=== PATIENT | male | born 1945 | race Caucasian/White ===

== ENCOUNTER → 2024-08-14 | Outpatient (CLI) | payer MEDICARE, BC, SELFPAY ==
[2024-08-14 10:05] LABS: Glucose Estimated Average 103 mg/dL (80-131); Hemoglobin A1C 5.2 % Hgb (4.8-6.0)
[2024-08-14 10:07] LABS: Ferritin 61 ng/mL (10.5-307.3); Iron 99 mcg/dL (65-175); Total Iron Binding Capacity 342 mcg/dL (250-425)
[2024-08-14 10:08] LABS: Basophils % (Auto) 1 % (0-2.5); Eosinophils # (Auto) 0.1 Thou/mm3 (0.0-0.5); Eosinophils % (Auto) 2 % (0-10); Folate 6.01 ng/mL (>5.38); Hematocrit 43.5 % (41.0-53.0); Hemoglobin 14.7 g/dL (13.5-16.0); Immature Granulocytes % (Auto) 0 % (0-0); Immature Granulocytes Auto 0.02 Thou/mm3 (0.00-0.00); Lymphocytes # (Auto) 1.6 Thou/mm3 (1.0-4.8); Lymphocytes % (Auto) 24 % (10-50); Mean Corpuscular HGB Conc 33.8 g/dl (31.0-37.0); Mean Corpuscular Hemoglobin 30.1 pg (25.0-35.0); Mean Corpuscular Volume 89 fL (80-100); Monocytes # (Auto) 0.4 Thou/mm3 (0.0-0.8); Monocytes % (Auto) 6 % (0-12); Neutrophils # (Auto) 4.4 Thou/mm3 (1.8-7.7); Neutrophils % (Auto) 68 % (37-80); Nucleated Red Blood Cell % 0 /100 WBC (0); Platelet Count 189 Thou/mm3 (140-440); RDW Standard Deviation 43.9 fL (35.1-43.9); Red Blood Count 4.89 Miln/mm3 (4.50-5.90); Vitamin B12 305 pg/mL (211-911); Vitamin D 25 Hydroxy Total 17.5 ng/mL (7.3-40.2); White Blood Count 6.4 Thou/mm3 (3.8-10.6)
[2024-08-14 10:13] LABS: Alanine Aminotransferase 22 U/L (10-49); Albumin, Serum 4.3 gm/dL (3.4-4.8); Albumin/Globulin Ratio 2.4 (1.2-2.2); Alkaline Phosphatase 88 U/L (46-116); Anion Gap 6 (7-16); Aspartate Amino Transferase 17 U/L (0-34); BUN/Creatinine Ratio 16 Ratio (12-20); Bilirubin,Total 0.7 mg/dL (0.3-1.2); Blood Urea Nitrogen 18 mg/dL (9-23); Carbon Dioxide 31.1 mMol/L (20.0-31.0); Chloride 104 mMol/L (98-107); Cholesterol 183 mg/dL (132-200); Creatinine (Component) 1.1 mg/dL (0.6-1.3); Free T4 (Free Thyroxine) 1.13 ng/dL (0.89-1.76); Globulin 1.8 gm/dL (2.3-3.5); Glucose 87 mg/dL (74-106); HDL Cholesterol 46 mg/dL (40-60); LDL Cholesterol,Calculated 117 mg/dL (0-130); Osmolality,Calculated 282 (275-295); Phosphorous 2.9 mg/dL (2.4-5.1); Potassium 3.8 mMol/L (3.4-5.1); Sodium 141 mMol/L (136-145); Thyroid Stimulating Hormone 1.98 uIU/mL (0.55-4.78); Total Protein 6.1 gm/dL (5.7-8.2); Triglycerides 99 mg/dL (30-150); eGFR > 60 See Note
[2024-08-16 22:07] LABS: PSA, Free 0.89 ng/mL; PSA, Total 3.4 ng/mL (< OR = 4.0)
[2024-08-17 06:56] LABS: PSA, % Free 26 % (calc) (>25)
== END | disposition home or self-care (01) ==
LOC: COPL 07:58
PROVIDERS: PCP Nurse Practitioner Family; Referring Provider Nurse Practitioner Family; Visit Provider Nurse Practitioner Family
DX: I10 Essential (primary) hypertension (principal)
CPT/HCPCS: 36415; 80053; 80061; 82306; 82607; 82728; 82746; 83036; 83540; 83550; 84100; 84153; 84154; 84439; 84443; 85025

== ENCOUNTER → 2024-12-18 | Outpatient (CLI) | payer MEDICARE, BC, SELFPAY ==
--- NOTE | 2024-12-18 13:06 | XR_ITS ---
Examination: Thoracic spine 3 views Technique one AP lateral coned lateral upper dorsal spine 3 views Date and time: December 18, 2024, 1401 hours INDICATIONS: Patient fell today with injury to the back, mid back pain. FINDINGS: Prominent osteopenia Mild kyphosis dorsal spine. No acute thoracic fracture. Mild to moderate diffuse thoracic degenerative disc disease IMPRESSION: No acute thoracic fracture
--- NOTE | 2024-12-18 13:06 | XR_ITS ---
Examination: Lumbar spine, 5 views Technique: Lumbar spine AP, lateral, coned lateral lower lumbar spine, bilateral obliques 5 views Exam date and time: December 18, 2024 1357 hours INDICATIONS: Patient fell today with injury to lower back, lower back pain. FINDINGS: Severe osteopenia Lumbar dextroscoliosis 10 degrees Diffuse advanced facet arthropathy. No acute lumbar fracture Advanced degenerative disc disease L1-L2, L3-L4, L4-L5 No spondylolisthesis IMPRESSION: No acute lumbar fracture
== END | disposition home or self-care (01) ==
LOC: CDIM 13:03
PROVIDERS: PCP Nurse Practitioner Family; Referring Provider Nurse Practitioner Family; Visit Provider Nurse Practitioner Family
DX: S39.92XA Unspecified injury of lower back, initial encounter (principal); S29.9XXA Unspecified injury of thorax, initial encounter; W19.XXXA Unspecified fall, initial encounter
CPT/HCPCS: 72072; 72110

== ENCOUNTER 2025-04-05 08:54 | Emergency (ER) | payer MEDICARE, BC, SELFPAY ==
[2025-04-05 09:21] VITALS: BP 170/89; PULSE 87; RESP 18; TEMP 36.9; O2SAT 99; BMI 28.8
--- NOTE | 2025-04-05 09:25 | XR_ITS ---
Examination: CT cervical spine without contrast 2-D sagittal reconstructions 2-D coronal reconstructions 3-D reconstructions. Exam date and time: April 05, 2025, 0945 hours INDICATIONS: Patient fell today with injury to the neck, neck pain CTDI:vol (mGy) 14.7 DLP: (mGycm) 335 Technique: Multiple 2 mm axial sections of the cervical spine have been obtained. The coronal and sagittal reconstructions have been obtained. 3-D reconstructions have been obtained. Low dose protocols were performed. One or more of the following dose reduction techniques were used; automated exposure control, adjustment of the mA and/or KV according to patient size, use of iterative reconstruction technique. Findings: Axial sections demonstrate intact base of the skull. C1 exhibit satisfactory relationship to the odontoid. No acute cervical vertebral body fracture seen. Alignment posterior spinous processes satisfactory. Impression: No acute cervical fracture. 7 mm nodule at the right apex image 116, recommend AP, AP lordotic chest views follow-up
--- NOTE | 2025-04-05 09:25 | XR_ITS ---
Examination: CT brain head without contrast. 2-D sagittal coronal reconstructions Date and time of exam: April 05, 2025, 0945 hours INDICATIONS: Patient fell today with injury to the head, head pain CTDI: vol (mGy): 49.7 DLP: (mGycm): 954 Technique: Multiple CT axial sections of the brain have been obtained, 5 mm slice thickness. Contrast has not been administered. 2-D sagittal, coronal reconstructions have been obtained Low dose protocols were performed. One or more of the following dose reduction techniques were used; automated exposure control, adjustment of the mA and/or KV according to patient size, use of iterative reconstruction technique. Findings: Right frontal hemorrhagic contusion, axial image 20 with adjacent subarachnoid hemorrhage over the right frontal convexity sulci Minute subarachnoid hemorrhage at the temporal lobe tip on the right axial image 26 No significant mass effect. Ventricles are not enlarged. No intraventricular hemorrhage Fourth ventricle midline Cranial vault appears intact IMPRESSION: Right frontal hemorrhagic contusion Subarachnoid hemorrhage over right frontal convexity sulci No significant mass effect upon the ventricular system Recommend close clinical observation and repeat CT brain scans as clinically warranted
--- NOTE | 2025-04-05 09:32 | PD.EDHA ---
ED Headache RME/HPI General Chief Complaint: Headache Stated Complaint: HEADACHE/HEAD INJURY Time Seen by Provider: 04/05/25 09:02 Source: patient Arrival date/time: 04/05/25 08:54 80-year-old male with a history of hypertension, presents to the emergency room with a chief complaint of a headache after a ground-level fall that occurred yesterday afternoon Mode of arrival: ambulatory Limitations: no limitations Related Data Home Medications ?Medication ?Instructions ?Recorded ?Confirmed hydrochlorothiazide 25 mg tablet 25 mg PO QDAY 04/10/19 04/10/19 lisinopril 20 mg tablet 20 mg PO QDAY 04/10/19 04/10/19 ranitidine HCl 150 mg tablet 150 mg PO BID 04/10/19 04/10/19 verapamil 240 mg tablet,extended 240 mg PO QAM 04/10/19 04/10/19 release Allergies Allergy/AdvReac Type Severity Reaction Status Date / Time naproxen Allergy Intermediate Numbness Verified 04/05/25 08:57 Review of Systems Review of Systems Systems Reviewed: All systems reviewed, normal except as documented Constitutional Constitutional: Reports system reviewed and no additional complaints, except as documented, Denies fatigue, Denies fever(s), Reports headache(s) and Denies weakness Eyes Eyes: Reports system reviewed and no additional complaints, except as documented, Denies blurry vision and Denies change in vision ENT Ears, Nose, Mouth, and Throat: Reports system reviewed and no additional complaints, except as documented, Denies otalgia, Reports headache(s), Denies nasal congestion, Denies throat swelling and Denies vertigo Cardiovascular Cardiovascular: Reports system reviewed and no additional complaints, except as documented, Denies chest pain, Denies dyspnea and Denies dyspnea on exertion Respiratory Respiratory: Reports system reviewed and no additional complaints, except as documented, Denies chest congestion, Denies cough, Denies dyspnea, Denies dyspnea on exertion and Denies wheezing Gastrointestinal Gastrointestinal: Reports system reviewed and no additional complaints, except as documented, Denies abdominal pain, Denies cramping, Denies nausea and Denies vomiting Genitourinary Genitourinary: Reports system reviewed and no additional complaints, except as documented, Denies dysuria and Denies hematuria Musculoskeletal Musculoskeletal: Reports system reviewed and no additional complaints, except as documented and Denies back pain Integumentary/Breasts Skin/Breast: Reports system reviewed and no additional complaints, except as documented and Denies wounds Neurologic Neurologic: Reports system reviewed and no additional complaints, except as documented, Denies confusion, Reports headache(s), Denies lack of coordination, Denies vertigo and Denies weakness Psychiatric Psychiatric: Reports system reviewed and no additional complaints, except as documented, Denies anxiety, Denies confusion, Denies depression, Denies paranoia, Denies suicidal ideation and Denies tactile hallucinations Endocrine Endocrine: Reports system reviewed and no additional complaints, except as documented and Denies fatigue Hematologic/Lymphatic Hematologic/Lymphatic: Reports system reviewed and no additional complaints, except as documented and Denies lymphadenopathy Allergic/Immunologic Allergic/Immunologic: Reports system reviewed and no additional complaints, except as documented, Denies throat swelling, Denies urticaria and Denies wheezing Past Medical History Past Medical History NEUROLOGIC: Negative Seizures CARDIAC: Positive Hypercholesterolemia and Hypertension; Negative Congestive Heart Failure RESPIRATORY: Negative Chronic Obstructive Pulmonary Disease (COPD) GASTROINTESTINAL: Positive Hiatal Hernia GENITOURINARY: Negative Renal Disease ENDOCRINE: Negative Diabetes Mellitus Type 1 or Diabetes Mellitus Type 2 OTHER HISTORY: Positive Blood Transfusions; Negative Blood Transfusion Reaction or Anesthesia Reactions Social History SMOKING STATUS: Never smoker ED Exam General Limitations: Present no limitations General appearance: Present alert and in no apparent distress Head Head exam: Present atraumatic, normocephalic and normal inspection Expanded Head Exam Head exam physical: Present contusion; Absent laceration, abrasion, hematoma, raccoon eyes, Pereira's sign, tenderness of temporal artery, CSF rhinorrhea or CSF otorrhea Head image:  1. Contusion to the posterior head Eye Eye exam: Present normal appearance, PERRL and EOMI ENT ENT exam: Present normal exam, normal oropharynx and mucous membranes moist Neck Neck exam: Present normal inspection, full ROM and trachea midline Chest Chest inspection: Present normal inspection and symmetric chest wall rise Respiratory Respiratory exam: Present normal lung sounds bilaterally Cardiovascular Cardiovascular exam: Present regular rate, normal rhythm and normal heart sounds Abdominal Exam Abdominal exam: Present soft and normal bowel sounds Extremities Exam Extremities exam: Present normal inspection and full ROM Back Exam Back exam: Present normal inspection and full ROM Neurological Exam Neurological exam: Present alert, oriented X3, CN II-XII intact, normal gait and reflexes normal; Absent motor sensory deficit Expanded Neurological Exam Patient oriented to: Present person, place and time Speech: Present fluid speech Cranial nerves: Normal: EOM function (II, III, IV, ) and facial sensation (V) Cerebellar function: Present normal gait Motor strength - LUE: 5/5 Motor strength - RUE: 5/5 Motor strength - LLE: 5/5 Motor strength - RLE: 5/5 Coma scale eye opening: spontaneous Coma scale motor response: obeys commands Coma scale verbal response: oriented Coma scale total: 15 Psychiatric Psychiatric exam: Present normal affect and normal mood Skin Skin exam: Present warm, dry, intact and normal color Course Quality Measures none Orders Category Date Time Status Wound Care NOW Care 04/05/25 09:[address] cervical spine wo con Stat Exams 04/05/25 09:[address] head/brain wo con Stat Exams 04/05/25 09:25 Ordered TET,DIP/PERT AC (Adult)-Tdap [Boostrix Adult (Tdap) Med 04/05/25 09:25 Discontinued Vacc] 0.5 ml IMI .ONCE ONE Vital Signs Vital signs: Vital Signs Temperature 98.4 F 04/05/25 09:21 Pulse Rate 87 04/05/25 09:21 Respiratory Rate 18 04/05/25 09:21 Blood Pressure 170/89 H 04/05/25 09:21 Pulse Oximetry (%) 99 04/05/25 09:21 Oxygen Delivery Method Room Air 04/05/25 09:21 Headache MDM Narrative MDM Narrative:: 26-year-old male with no known medical history presents to the emergency room with a chief complaint of left ear pain x 3 days Patient data External records reviewed:: [facility] previous records Clinical information provided by:: patient Social determinants that could affect healthcare access:: none Patient has the following chronic illnesses:: No chronic illness How is presenting disease/condition affected by chronic disease/condition?: no chronic disease Evaluation data The following diagnostics were reviewed and interpreted by me:: lab results and radiology exam(s) Lab and/or radiology exams considered but not ordered:: Labs and radiology exams considered and ordered Interpretation Summary: CT head and brain- CT cervical spine- Medications / Prescriptions Medications or Prescriptions considered but not ordered:: Medication given Medication administrations:: Medication Administration History Discontinued Medications Diphtheria/Tetanus/Acell Pertussis (Diphth,Pertuss(Acell),Tet Vac 0.5 Ml Syr- Adult) 0.5 ml IMi .ONCE ONE Stop: 04/05/25 09:26 Medication given Consultations Consultation(s) initiated? (list below): No Diagnosis Differential diagnosis headache: tension headache, headache and postconcussion syndrome Admission Indicated Admission indicated?: not indicated Admission Request Was there a request for admission?: No Disposition Plan Disposition Plan: Discharge Discharge Attestation Discharge Attestation: The patient and all family members were given an opportunity to ask questions and understood the discharge instructions. Discharge instructions specifically effects, indications for sooner follow up or return to the emergency department, and the expected course of current diagnosis. Patient condition: Stable Discharge Plan Prescriptions/Referrals Prescriptions/Med Rec: No Action lisinopril 20 mg Tablet 20 mg PO QDAY ranitidine HCl 150 mg Tablet 150 mg PO BID verapamil 240 mg Tablet Extended Release 240 mg PO QAM hydrochlorothiazide 25 mg Tablet 25 mg PO QDAY Patient/Caregiver Discharge Instructions Print Language: Welsh
[2025-04-05] MEDS: DIPHTH,PERTUSS(ACELL),TET VAC 0.5 ML SYR- ADULT IMi (09:54)
--- NOTE | 2025-04-05 10:22 | PD.EDRME ---
Rapid Medical Screening Exam E Arrival date/time: 04/05/25 08:54 80-year-old male with a history of hypertension, presents to the emergency room with a chief complaint of a headache after a ground-level fall that occurred yesterday afternoon I have greeted and performed a focused initial assessment of this patient. A comprehensive ED assessment and evaluation of the patient, analysis of all test results, and completion of the medical decision making process will be conducted by additional ED providers. Chief Complaint: Headache Time Seen by Provider: 04/05/25 09:02 Vital signs: Vital Signs Temperature 98.4 F 04/05/25 09:21 Pulse Rate 87 04/05/25 09:21 Respiratory Rate 18 04/05/25 09:21 Blood Pressure 170/89 H 04/05/25 09:21 Pulse Oximetry (%) 99 04/05/25 09:21 Oxygen Delivery Method Room Air 04/05/25 09:21 Vital signs reviewed by provider: Yes Exam: GCS of 15 alert and oriented x 3 pupils are PERRLA Clear bilateral lung sounds Clinical Impression: Close head injury/head bleed/concussion
--- NOTE | 2025-04-05 10:28 | PD.EDHA ---
ED Headache RME/HPI General Chief Complaint: Headache Stated Complaint: HEADACHE/HEAD INJURY Time Seen by Provider: 04/05/25 09:02 Arrival date/time: 04/05/25 08:54 Limitations: no limitations RME / HPI RME / HPI Narrative: 04/05/25 08:54 80-year-old male with a history of hypertension, presents to the emergency room with a chief complaint of a headache after a ground-level fall that occurred yesterday afternoon I have greeted and performed a focused initial assessment of this patient. A comprehensive ED assessment and evaluation of the patient, analysis of all test results, and completion of the medical decision making process will be conducted by additional ED providers. DR. VASQUEZ MAIN ED EVALUATION: 80 year old male with history of hypertension, anemia presents to the ED for evaluation of headache beginning after mechanical fall, approximately 2-3 feet above ground, yesterday afternoon. States he was on the 3rd to 4th step walking into his mobile home when he lost balance and fell backwards. Striking the back of his head on cement rex. Patient states he was able to stand and ambulatory after fall, no prolonged down time or LOC. The headache is described as aching in sensation located most to the right side, rating as moderate. Accompanied by dizziness. Patient states he took Aspirin yesterday evening, none today. No other blood thinner use. Denies any change in vision, speech, or gait. Was able to walk into the ER today without difficulty. No other associated symptoms or complaints. Exam: GCS of 15 alert and oriented x 3 pupils are PERRLA Clear bilateral lung sounds Impression: Close head injury/head bleed/concussion Related Data Home Medications ?Medication ?Instructions ?Recorded ?Confirmed hydrochlorothiazide 25 mg tablet 25 mg PO QDAY 04/10/19 04/10/19 lisinopril 20 mg tablet 20 mg PO QDAY 04/10/19 04/10/19 ranitidine HCl 150 mg tablet 150 mg PO BID 04/10/19 04/10/19 verapamil 240 mg tablet,extended 240 mg PO QAM 04/10/19 04/10/19 release Allergies Allergy/AdvReac Type Severity Reaction Status Date / Time naproxen Allergy Intermediate Numbness Verified 04/05/25 08:57 Review of Systems Review of Systems Systems Reviewed: All systems reviewed, normal except as documented Past Medical History Past Medical History NEUROLOGIC: Negative Seizures CARDIAC: Positive Hypercholesterolemia and Hypertension RESPIRATORY: Negative Chronic Obstructive Pulmonary Disease (COPD) GASTROINTESTINAL: Positive Hiatal Hernia GENITOURINARY: Negative Renal Disease ENDOCRINE: Negative Diabetes Mellitus Type 1 or Diabetes Mellitus Type 2 OTHER HISTORY: Positive Blood Transfusions Social History SMOKING STATUS: Never smoker ED Exam General Limitations: Present no limitations General appearance: Present alert and in no apparent distress Head Head exam: Present other (contusion to posterior scalp, right side) Eye Eye exam: Present normal appearance, PERRL and EOMI ENT ENT exam: Present normal exam, normal oropharynx and mucous membranes moist Neck Neck exam: Present normal inspection, full ROM and trachea midline Chest Chest inspection: Present normal inspection and symmetric chest wall rise Respiratory Respiratory exam: Present normal lung sounds bilaterally Cardiovascular Cardiovascular exam: Present regular rate, normal rhythm and normal heart sounds Abdominal Exam Abdominal exam: Present soft and normal bowel sounds Extremities Exam Extremities exam: Present full ROM and other (abrasion over the knucle of the fifth digit left hand ) Back Exam Back exam: Present normal inspection and full ROM Neurological Exam Neurological exam: Present alert, oriented X3 and CN II-XII intact Psychiatric Psychiatric exam: Present normal affect and normal mood Skin Skin exam: Present warm, dry, intact and normal color Course Quality Measures none Orders Category Date Time Status CT Screening NOW Care 04/05/25 10:57 Active Wound Care NOW Care 04/05/25 09:25 Active Referral - Beef Skinner Stat Cons 04/05/25 10:[address] angio head Stat Exams 04/05/25 10:[address] cervical spine wo con Stat Exams 04/05/25 09:[address] head/brain wo con Stat Exams 04/05/25 09:25 Completed CBC Stat Lab 04/05/25 10:43 Completed CMP [Comprehensive Metabolic Panel] Stat Lab 04/05/25 10:43 Completed INR [Prothrombin Time with INR] Stat Lab 04/05/25 10:43 Completed PLATELETS [Pheresis Platelets] Stat Lab 04/05/25 10:58 Ordered Nicardipine/Ns 20Mg Ivpb [Cardene Ivpb] Med 04/05/25 10:20 Active 20 mg in 200 ml IV 5 mg/hr Nicardipine/Ns 20Mg Ivpb [Cardene Ivpb] Med 04/05/25 12:45 Active 20 mg in 200 ml IV 5 mg/hr TET,DIP/PERT AC (Adult)-Tdap [Boostrix Adult (Tdap) Med 04/05/25 09:25 Discontinued Vacc] 0.5 ml IMI .ONCE ONE Tranexamic Acid 1,000 mg Ivpb [Tranexamic Acid Ivpb] Med 04/05/25 10:59 Active 1,000 mg in 100 ml IV PRNMRX1 hydrALAZINE INJ [Apresoline Inj] Med 04/05/25 11:43 Discontinued 10 mg IVP X1 ONE Vital Signs Vital signs: Vital Signs Temperature 98.4 F 04/05/25 09:21 Pulse Rate 87 04/05/25 09:21 Respiratory Rate 18 04/05/25 09:21 Blood Pressure 170/89 H 04/05/25 09:21 Pulse Oximetry (%) 99 04/05/25 09:21 Oxygen Delivery Method Room Air 04/05/25 09:21 Pulse ox is 99% on room air which is adequate. Headache MDM Narrative MDM Narrative:: Kalpana Bowie am scribing for and in the presence of Dr. Vasquez. 80 year old male with history of hypertension, anemia presents to the ED for evaluation of headache beginning after mechanical fall, approximately 2-3 feet above ground, yesterday afternoon. States he was on the 3rd to 4th step walking into his mobile home when he lost balance and fell backwards. Striking the back of his head on cement rex. Assessment: Traumatic head injury Traumatic bleed with subarachnoid hemorrhage Plan: This is a treaumatic head bleed, no need for CTA at this time Control BP, keep SBP < 140 with Nicardipine drip Transfer for neurosurgery for observation 1055a: I spoke with transfer nurse and neurosurgeon Dr. Reardon at [facility]. Discussed patients PMHx, HPI, ED course, exam findings, labs, and radiology results. Dr. Reardon is requesting CTA to rule out AVM or aneurysm. States if negative he can accept the patient for transfer. 1105a: I spoke with transfer nurse at [facility]. Discussed patients PMHx, HPI, ED course, exam findings, labs, and radiology results. Will present the case to their team and call back. 1135a: [facility] has accepted the patient for transfer, ER to ER. Patient data External records reviewed:: [facility] previous records Clinical information provided by:: patient Social determinants that could affect healthcare access:: none Patient has the following chronic illnesses:: Hypertension How is presenting disease/condition affected by chronic disease/condition?: exacerbated by Evaluation data The following diagnostics were reviewed and interpreted by me:: lab results and radiology exam(s) Lab and/or radiology exams considered but not ordered:: None Interpretation Summary: Ordering Physician: Guanako Galvan Date of Service: 04/05/25 Procedure(s): CT cervical spine wo con Accession Number(s): [id number] cc: Guanako Galvan; Jhonathan Peterson MD~ Examination: CT cervical spine without contrast 2-D sagittal reconstructions 2-D coronal reconstructions 3-D reconstructions. Exam date and time: April 05, 2025, 0945 hours INDICATIONS: Patient fell today with injury to the neck, neck pain CTDI:vol (mGy) 14.7 DLP: (mGycm) 335 Technique: Multiple 2 mm axial sections of the cervical spine have been obtained. The coronal and sagittal reconstructions have been obtained. 3-D reconstructions have been obtained. Low dose protocols were performed. One or more of the following dose reduction techniques were used; automated exposure control, adjustment of the mA and/or KV according to patient size, use of iterative reconstruction technique. Findings: Axial sections demonstrate intact base of the skull. C1 exhibit satisfactory relationship to the odontoid. No acute cervical vertebral body fracture seen. Alignment posterior spinous processes satisfactory. Impression: No acute cervical fracture. 7 mm nodule at the right apex image 116, recommend AP, AP lordotic chest views follow-up Dictated By: Jhonathan Peterson MD Signed By: <Electronically signed by Jhonathan Peterson MD in OV> 04/05/25 1014 Ordering Physician: Guanako Galvan Date of Service: 04/05/25 Procedure(s): CT head/brain wo con Accession Number(s): [id number] cc: Guanako Galvan; Jhonathan Peterson MD~ Examination: CT brain head without contrast. 2-D sagittal coronal reconstructions Date and time of exam: April 05, 2025, 0945 hours INDICATIONS: Patient fell today with injury to the head, head pain CTDI: vol (mGy): 49.7 DLP: (mGycm): 954 Technique: Multiple CT axial sections of the brain have been obtained, 5 mm slice thickness. Contrast has not been administered. 2-D sagittal, coronal reconstructions have been obtained Low dose protocols were performed. One or more of the following dose reduction techniques were used; automated exposure control, adjustment of the mA and/or KV according to patient size, use of iterative reconstruction technique. Findings: Right frontal hemorrhagic contusion, axial image 20 with adjacent subarachnoid hemorrhage over the right frontal convexity sulci Minute subarachnoid hemorrhage at the temporal lobe tip on the right axial image 26 No significant mass effect. Ventricles are not enlarged. No intraventricular hemorrhage Fourth ventricle midline Cranial vault appears intact IMPRESSION: Right frontal hemorrhagic contusion Subarachnoid hemorrhage over right frontal convexity sulci No significant mass effect upon the ventricular system Recommend close clinical observation and repeat CT brain scans as clinically warranted Dictated By: Jhonathan Peterson MD Signed By: <Electronically signed by Jhonathan Peterson MD in OV> 04/05/25 1013 Medications / Prescriptions Medications or Prescriptions considered but not ordered:: None Medication administrations:: Medication Administration History Nicardipine/Sodium Chloride (Cardene Ivpb) 20 mg in 200 mls @ 50 mls/hr IV .Q4H PRN; Protocol PRN Reason: Per Protocol, titrate to keep Stop: 05/05/25 10:19 Last Titration: 04/05/25 12:11 Dose: 0 mg/hr, 0 mls/hr Documented By: Titration: 04/05/25 12:10 Dose: 5.5 mg/hr, 55 mls/hr Documented By: Titration: 04/05/25 12:05 Dose: 3 mg/hr, 30 mls/hr Documented By: Titration: 04/05/25 11:30 Dose: 15 mg/hr, 150 mls/hr Documented By: Titration: 04/05/25 11:25 Dose: 12.5 mg/hr, 125 mls/hr Documented By: Titration: 04/05/25 11:20 Dose: 10 mg/hr, 100 mls/hr Documented By: Titration: 04/05/25 11:15 Dose: 7.5 mg/hr, 75 mls/hr Documented By: Admin: 04/05/25 11:10 Dose: 5 mg/hr, 50 mls/hr Documented By: EF Tranexamic Acid (Tranexamic Acid Ivpb) 1,000 mg in 100 mls @ 200 mls/hr IV PRNMRX1 PRN PRN Reason: BLEEDING Last Infusion: 04/05/25 11:57 Dose: Infused Documented By: Admin: 04/05/25 11:24 Dose: 200 mls/hr Documented By: EF Nicardipine/Sodium Chloride (Cardene Ivpb) 20 mg in 200 mls @ 50 mls/hr IV .Q4H ONE; Protocol Stop: 04/05/25 16:44 Last Admin: 04/05/25 12:38 Dose: 5 mg/hr, 50 mls/hr Documented By: EF Discontinued Medications Diphtheria/Tetanus/Acell Pertussis (Diphth,Pertuss(Acell),Tet Vac 0.5 Ml Syr- Adult) 0.5 ml IMi .ONCE ONE Stop: 04/05/25 09:26 Last Admin: 04/05/25 09:54 Dose: 0.5 ml Documented By: Hydralazine HCl (Hydralazine Inj 20 Mg/Ml Vial) 10 mg IVP X1 ONE Stop: 04/05/25 11:44 Last Admin: 04/05/25 11:56 Dose: 10 mg Documented By: EF See above Consultations Consultation(s) initiated? (list below): Yes Consultation #1 (Physician, Specialty, Details): See MDM Diagnosis Differential diagnosis headache: migraine, subarachnoid hemorrhage and headache Most likely diagnosis given after review of the tests above:: Subarachnoid hemorrhage Head trauma Admission Indicated Admission indicated?: not indicated Explain why admission is indicated or not indicated:: Txfer for neurosurgery Admission Request Was there a request for admission?: No Disposition Plan Disposition Plan: Transfer Critical Care Time Critical Care Time Critical Care Time: Yes Total Critical Care Time (min.): 50 Attestation: The high probability of sudden, clinically significant deterioration in the patient's condition required the highest level of my preparedness to intervene urgently. The services I provided to this patient were to treat and/or prevent clinically significant deterioration. Services included the following: chart data review, reviewing nursing notes and/or old charts, documentation time, wardrobe image consultant collaboration regarding findings and treatment options, medication orders and management, direct patient care, vital sign assessments and ordering, interpreting and reviewing diagnostic studies and lab tests. Aggregate critical care time includes only time during which I was engaged in work directly related to the patient's care, as described above, whether at bedside or elsewhere in the Emergency Department. It did not include time spent performing other reported procedures or the services of residents, students, nurses or physician assistants. Discharge Plan Plan Patient Disposition: [facility] Pt Being Transferred to: [facility] Service Needed for Transfer: Neurosurgery Prescriptions/Referrals Prescriptions/Med Rec: No Action lisinopril 20 mg Tablet 20 mg PO QDAY ranitidine HCl 150 mg Tablet 150 mg PO BID verapamil 240 mg Tablet Extended Release 240 mg PO QAM hydrochlorothiazide 25 mg Tablet 25 mg PO QDAY Referrals: No Primary/Family,Physician [Primary Care Provider] - In 1 week Problem List Clinical Impression: Subarachnoid hemorrhage, Head trauma Patient/Caregiver Discharge Instructions Print Language: Trinidadian Stand Alone Forms: Esthela Award Info., Patient Portal Info Letter
--- NOTE | 2025-04-05 10:29 | PC.CC ---
Addendum entered by Brenda Ríos RN 04/05/25 12:20: 1211: transfer packets given to DOMINGA Ling. 1209: [facility] crew at pt's bedside. 1205: transfer packet w/ 1 CD taken to ED. Pt agreeable to transfer. 1157: Andrew w/ [facility] called, ground crew accepted and is on there way, ETA of 20 min. Informed DOMINGA Ling. 1154: Rene w/ [facility] called back to decline d/t weather. will reassess at 1400 Addendum entered by Brenda Ríos RN 04/05/25 11:53: 1147: called [facility], spoke to Freida L[facility]pez [employer] ETA of 26 min if they accept. He will call me back with an answer 1145: Anuradha called for update, provided the information below. 1142: Sammy rodriguez/ [facility] called, she stated [facility] has declined d/t to weather but will re-eval at 1310. I informed her pt unable to go by ground d/t short staffing for nurses. She stated that she will search for a ground crew if avail. Addendum entered by Brenda Ríos RN 04/05/25 11:39: 1132: canceled transfer request with [facility]co rodriguez 1128: called [facility] for flight check. Surendra ochoa 7 ETA 64 min if they accept. Will call me back with acceptance or decline 1124: called our ED to provide accepting information, spoke to DOMINGA Ling. She informed pt is now on a nicardepine gtt will need air transport. 1124: received call from Arlene. Pt accepted by Dr. Gage Hayden Trauma team. ED to ED. Call report to [phone] 1114: Rashida rodriguez/ [employer] called back, she stated since [facility] is the closest hospital, they can not move forward. I informed her that I will call to reinitiate if other facilities do not accept. Addendum entered by Brenda Ríos RN 04/05/25 11:20: transfer packet and CD X1 created. Addendum entered by Brenda Ríos RN 04/05/25 11:20: 1117: spoke to Dr. Kapoor, update provided. He stated he did order the CTA. If [facility], does not accept, then wait for CTA results and reach back out to [facility]. 1113: Received call back from Rashida with [facility], she asked for an update from [facility]. I informed her that they declined. I requested the search continues for other facilities with Neurosurgery. She stated she will speak to her trust accounts supervisor for further direction. Addendum entered by Brenda Ríos RN 04/05/25 11:13: 1111: received call from Susie with [facility] ER, declined patient due to capacity in the ED and Hospital. 1103: Arlene connected w/ Dr. Kapoor for Emtala questions. She stated, she will present to the team and call back. 1058: Called [facility], spoke to Arlene, transfer request initiated. 1051: Leola connected with Dr. Vasquez for Emtala questions then peer to peer with Dr. Reardon (neurosurgeon) completed. Dr. Reardon rec a CTA to be completed, then call them back if patient is negative for an aneurysm. 1050: Informed Dr. Vasquez regarding [facility] situation with bed capactiy and that I sent clinicals to [facility] and [facility]. He was agreeable. [facility] initiated. Addendum entered by Brenda Ríos RN 04/05/25 10:48: 1044: Called [facility], left to return my call. 1039: received call back from Rashida rodriguez/ [facility], she connected me to Susie PRESTON in the ER. Clinical update provided, Susie stated she is waiting for house sup to respond with bed capacity. I asked if the Neuro surgery oncall has reviewed the images i sent, she stated they will reach out to the neuro surgeon after she hears about the bed situation. Susie stated she will call me back by 1100 Addendum entered by Brenda Ríos RN 04/05/25 10:38: 1034: called Dr. Vasquez to inform him about sending to other facilites, however he was not avail d/t to an emergency Addendum entered by Brenda Ríos RN 04/05/25 10:37: 1033: Rashida came back on the line to inform me no answer in ED. Will wait 5 min, then will escalate to AOC. Clinicals and images sent to [facility]. Clinicals sent to [facility] 1023: clinicals and images sent to [facility]. Original Note: 1020: called [facility] to initiate transfer with Rashida. She put me on hold to connect me with a nurse. Still on hold as of 103 1019: received call and order from Dr. Vasquez for transfer request for Intracerebral and SAH secondary to trauma. Per Dr. Vasquez pt prefers [place].
[2025-04-05 11:10] VITALS: BP 176/86; PULSE 67
[2025-04-05] MEDS: NICARDIPINE/NS 20MG IVPB 20 MG/200 ML BAG 50 MG IV ×2 (11:10→12:38)
[2025-04-05] MEDS: TRANEXAMIC ACID 1,000 MG IVPB 1,000 MG/100 ML BAG 200 MG IV (11:24)
[2025-04-05 11:35] LABS: Basophils # (Auto) 0.0 Thou/mm3 (0.0-0.2); Basophils % (Auto) 0 % (0-2.5); Eosinophils # (Auto) 0.1 Thou/mm3 (0.0-0.5); Eosinophils % (Auto) 1 % (0-10); Hematocrit 43.5 % (41.0-53.0); Hemoglobin 15.0 g/dL (13.5-16.0); Immature Granulocytes Auto 0.04 Thou/mm3 (0.00-0.00); Lymphocytes # (Auto) 1.3 Thou/mm3 (1.0-4.8); Lymphocytes % (Auto) 14 % (10-50); Mean Corpuscular HGB Conc 34.5 g/dl (31.0-37.0); Mean Corpuscular Hemoglobin 30.8 pg (25.0-35.0); Mean Corpuscular Volume 89 fL (80-100); Monocytes # (Auto) 0.7 Thou/mm3 (0.0-0.8); Monocytes % (Auto) 8 % (0-12); Neutrophils # (Auto) 7.2 Thou/mm3 (1.8-7.7); Neutrophils % (Auto) 77 % (37-80); Nucleated Red Blood Cell # 0.00 Thou/mm3 (0.00-0.00); Nucleated Red Blood Cell % 0 /100 WBC (0); Platelet Count 193 Thou/mm3 (140-440); RDW Standard Deviation 43.1 fL (35.1-43.9); Red Blood Count 4.87 Miln/mm3 (4.50-5.90); White Blood Count 9.4 Thou/mm3 (3.8-10.6)
[2025-04-05 11:41] LABS: INR 1.1 (0.9-1.3); Prothrombin Time 11.2 Seconds (9.0-12.2)
[2025-04-05 11:48] LABS: Alanine Aminotransferase 17 U/L (10-49); Albumin, Serum 4.9 gm/dL (3.4-4.8); Albumin/Globulin Ratio 2.3 (1.2-2.2); Alkaline Phosphatase 97 U/L (46-116); Anion Gap 10 (7-16); Aspartate Amino Transferase 19 U/L (0-34); BUN/Creatinine Ratio 11 Ratio (12-20); Bilirubin,Total 1.1 mg/dL (0.3-1.2); Blood Urea Nitrogen 12 mg/dL (9-23); Calcium 9.7 mg/dL (8.3-10.6); Calcium (Corrected) 9.7 mg/dL (8.5-10.1); Carbon Dioxide 31.2 mMol/L (20.0-31.0); Chloride 102 mMol/L (98-107); Creatinine (Component) 1.1 mg/dL (0.6-1.3); Estimated Creatinine Clearance 59.1 mL/min (>60); Globulin 2.1 gm/dL (2.3-3.5); Glucose 101 mg/dL (74-106); Osmolality,Calculated 284 (275-295); Potassium 3.6 mMol/L (3.4-5.1); Sodium 143 mMol/L (136-145); Total Protein 7.0 gm/dL (5.7-8.2); eGFR > 60 See Note
[2025-04-05 11:56] VITALS: BP 150/73; PULSE 93
[2025-04-05] MEDS: hydrALAZINE INJ 20 MG/ML VIAL 10 MG IVP (11:56)
--- NOTE | 2025-04-05 12:23 | PC.NURSE ---
gave report to salo from reach flight team also sent an additional bag of nicardipine for use on route
[2025-04-05 12:38] VITALS: BP 132/69; PULSE 104
--- NOTE | 2025-04-05 12:39 | PC.NURSE ---
spoke with radha godinez regarding flight team taking 2 additional bags of nicardipine. told me to scan them and send them out the bags scanned were not started by me
== END 2025-04-05 12:40 | disposition short-term general hospital (02) ==
PROVIDERS: Emergency Provider Emergency Medicine
DX: S06.6X0A Traumatic subarachnoid hemorrhage without loss of consciousness, initial encounter (principal); S19.9XXA Unspecified injury of neck, initial encounter; R91.1 Solitary pulmonary nodule; W01.0XXA Fall on same level from slipping, tripping and stumbling without subsequent striking against object, initial encounter; Y93.01 Activity, walking, marching and hiking; Y92.029 Unspecified place in mobile home as the place of occurrence of the external cause; Z23 Encounter for immunization; Z75.1 Person awaiting admission to adequate facility elsewhere
CPT/HCPCS: 36415; 70450; 72125; 80053; 85025; 85610; 86965; 90471; 90715; 96365; 96375; 99284; J0360; J2404; J3490